=== PATIENT | female | born 1990 | race Caucasian/White ===

== ENCOUNTER → 2019-03-27 | Outpatient (CLI) | payer BC ==
[~2019-03-27] MED LIST: FAT BURNER PO; MULTIVITAMINS PO
== END ==
LOC: RAD 09:49
DX: R07.81 Pleurodynia (principal); R05 Cough

== ENCOUNTER → 2020-05-16 | Outpatient (CLI) | payer BC | LOC: CAT 09:22 → LAB 09:22 → CAT 13:27 | PROVIDERS: ATTEND Nurse Practitioner | DX: N13.30 Unspecified hydronephrosis (principal); N92.5 Other specified irregular menstruation; R19.5 Other fecal abnormalities ==